=== PATIENT | male | born 2000 | race Caucasian/White ===

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

== ENCOUNTER 2024-11-12 19:39 | Emergency (ER) | payer MEDICAID, SELFPAY ==
[2024-11-12] VITALS (7 sets, daily range): BP systolic 111–153; BP diastolic 64–92; PULSE 63–88; RESP 18; TEMP 36.7; O2SAT 97–99
--- NOTE | 2024-11-12 19:45 | RT.EKG_ITS ---
APPROVED REPORT Exam: Resting ECG Reason for Exam: syncope Patient Location: E HR:80 bpm ECG Measurements Heart Rate 80 AXIS NV 137 P 65 QRSd 105 QRS 105 QT 354 T 40 QTc 409 Conclusion Sinus rhythm...normal P axis, V-rate 60- 99
--- NOTE | 2024-11-12 19:54 | ED.GENADUL_ITS ---
Discharge Plan Disposition Patient Disposition: Home Condition: Stable Discharge Details Chief Complaint: Abd Prob Clinical Impression: Syncope, Headache Primary Care Provider: None,None ED Provider: Asael Rush Home Meds and New Rx's Prescriptions: No Action No Known Home Meds Discharge Instructions Additional Instructions: You likely suffered for vasovagal syncope. Make sure you are staying hydrated and trying to get as much sleep as he can can help. Follow-up with your primary care provider especially if you have continued symptoms such as nausea or headac hes. If you feel more ill or have new symptoms such as severe abdominal pain or chest pain return to the emergency department for reevaluation HPI General Mode of arrival: ambulatory . Date/Time Provider Initiated Documentation: 11/12/24 19:40 . Limitations to Documentation: no limitations . Information obtained by: patient . History of Present Illness 23 year old M presents to the emergency department with the chief complaint of headache, syncope, described as moderate, Patient started experiencing this hour(s) (1) and it has been now resolved. No relieving factors improve symptom(s), No exacerbating factors reported . Patient notes denies chest pain and shortness of breath. Patient did receive the following treatments prior to arrival, none Related Data Home Medications ?Medication ?Instructions ?Recorded ?Confirmed Unknown [No Known Home Meds] 03/24/17 11/12/24 Allergies Allergy/AdvReac Type Severity Reaction Status Date / Time No Known Allergies Allergy Unverified 11/12/24 19:44 General Stated Complaint: Abd Prob LATONYA: 3 Review of Systems All systems reviewed & are unremarkable except as noted in HPI and below Constitutional Constitutional: Denies chills, Denies fever(s), Reports headache(s) and Denies weakness ENT Ears, Nose, Mouth, and Throat: Reports headache(s) Cardiovascular Cardiovascular: Denies chest pain and Denies dyspnea Respiratory Respiratory: Denies cough and Denies dyspnea Gastrointestinal Gastrointestinal: Denies abdominal pain, Denies nausea and Denies vomiting Neurologic Neurologic: Reports headache(s) and Denies weakness Exam Const General: no acute distress Orientation: alert HENMT Head: normal to inspection Ears: external ears normal General nose exam: external nose normal Mouth: moist mucous membranes Eyes General: appearance normal, both eyes and all related structures Neck Neck: normal visual inspection Resp Effort & Inspection: normal respiratory effort and able to speak in complete sentences Auscultation: clear to auscultation bilaterally Cardio Jugular venous pressure: no JVD Rate: regular rate Heart Sounds: no murmurs GI Palpation: soft and nontender Skin General skin exam: no rashes or lesions noted Neuro General: patient alert and patient oriented x3 Extrem General: normal to inspection Psych Mental Status: mental status grossly normal Course Vital Signs Vital signs: Vital Signs Temperature 36.7 C 11/12/24 19:41 Pulse 88 11/12/24 19:41 Respiratory Rate 18 11/12/24 19:41 Blood Pressure 153/92 H 11/12/24 19:41 Pulse Oximetry 98 11/12/24 19:41 Temperature 36.7 C 11/12/24 19:41 Temperature Source Oral 11/12/24 19:41 Pulse 88 11/12/24 19:41 Respiratory Rate 18 11/12/24 19:41 Blood Pressure 153/92 H 11/12/24 19:41 Blood Pressure Position Sitting 11/12/24 19:41 Pulse Oximetry 98 11/12/24 19:41 Oxygen Delivery Method Room Air 11/12/24 19:41 Oxygen Flow Rate 0 11/12/24 19:41 Medical Decision Making 23-year-old male who denies any chronic medical problems comes in after an episode of syncope. He says that he works night shifts and was up 2 hours earlier. He says that he took a big gulp of cold spray, he felt like it expanded in his abdomen and then he got tunnel vision and had a loss of consciousness for less than a minute. He apparently fell backwards in his head per bystander. He currently feels well other than having a mild frontal headache. He denies any fevers, chest pain, abdominal pain, vomiting. He has no focal neurological deficits and normal gait. He has a soft nontender abdomen. Clear lung sounds. I suspect this could be small syncope versus possible related to his lack of sleep, given the headache I will obtain a CT head and also check a CBC and CMP to evaluate for anemia and electrolyte abnormalities. He had no chest pain so I doubt ACS. No tachycardia or hypoxia to suggest PE. He has no tearing back pain so I doubt dissection. Given his lack of abdominal tenderness or pain I do not feel any imaging of his abdomen is indicated Labs show white count of 15 otherwise no significant findings. He continues to have no abdominal pain or tenderness on exam. He does note that he is intermittently feeling gassy . CT on my read without acute findings awaiting [facility] read. Will treat his gas symptoms with simethicone. CT head negative per [facility] read, patient is stable and still has no abdominal pain and headache is resolved. I suspect vasovagal syncope, he will follow-up with PCP of his lingering symptoms and return precautions given Differential Diagnosis Differential Diagnosis: Swallow syncope, anemia, electrolyte abnormality Lab Data Lab results reviewed: Yes I reviewed the patient's lab results. ECG Data Attestation: I personally reviewed and interpreted this ECG (s) as follows: Prior ECG tracings: not available for review Interpretation: sinus rate of 80 pr 137 no stemi Quality:SDOH Health Related Social Needs: No Data to Display PFSH All Active Problems (Updated 11/12/24 @ 21:12 by Asael Rush MD) Headache (Acute) Syncope (Chronic) Medical History (Updated 11/12/24 @ 21:12 by Asael Rush MD) Heart murmur Elbow fracture, left Femur fracture, right ADD (attention deficit disorder) Family History Mother Diabetes Gestational and now Type 2 History of hip replacement Hyperlipidemia Mental disorder Bi-polar Father Substance abuse DRUGS History of knee replacement Mental disorder Bi-Polar Other No problems noted. Grandparent Diabetes Social History Smoking/Tobacco Use Status: Current every day Tobacco Type: e-cigarettes and smokeless tobacco Smoking risk assessment performed?: Yes Alcohol Intake: never Drug use: Never Substance use type: does not use Do you feel safe at home: Yes Do you feel safe in your relationship?: Yes
[2024-11-12] MEDS: Acetaminophen 500 MG TAB 1000 MG PO (19:55)
[2024-11-12 20:00] LABS: Abs Immature Grans 0.06 10^3/uL (0.0-0.06); Absolute Basophil Count 0.08 10^3/uL (0.0-0.2); Absolute Eosinophil Count 0.11 10^3/uL (0.0-0.7); Absolute Lymphocyte Count 3.32 10^3/uL (1.2-3.4); Absolute Monocyte Count 0.71 10^3/uL (0.1-0.8); Absolute Neutrophil Count 11.39 10^3/uL (1.2-6.7); Basophils % 0.5 %; Eosinophils % 0.7 %; HCT 44.1 % (40.0-50.0); HGB 14.8 g/dL (13.5-17.5); Immature Grans % 0.4 %; Lymphocytes % 21.2 %; MCH 30.3 pg (27.0-33.0); MCHC 33.6 % (32.0-36.0); MCV 90 fL (80-95); MPV 9.9 fL (8.0-11.0); Monocytes % 4.5 %; Neutrophils % 72.7 %; Platelet Count 348 10^3/uL (130-400); RBC 4.89 10^6/uL (4.36-5.78); RDW 12.5 % (11.8-14.1); RDW-SD 41.3 fL; WBC 15.67 10^3/uL (4.4-10.8)
[2024-11-12 20:14] LABS: ALT 33 U/L (16-63); AST 27 U/L (15-37); Albumin 4.4 g/dL (3.4-5.0); Alkaline Phosphatase 108 U/L (46-116); Anion Gap 8.1 mmol/L (3-11); BUN 14 mg/dL (7-18); Bilirubin, Total 0.39 mg/dL (0.2-1.0); CO2 31.9 mmol/L (21.0-32.0); CREATININE 0.9 mg/dL (0.70-1.30); Calcium 9.8 mg/dL (8.5-10.1); Chloride 102 mmol/L (98-107); Estimated GFR 123.84 (mL/min/1.73m2); Glucose 118 mg/dL (74-106); Lipase 32 U/L (<78); Magnesium 2.1 mg/dL (1.8-2.4); Potassium 3.6 mmol/L (3.5-5.1); Sodium 142 mmol/L (136-145); Total Protein 8.3 g/dL (6.4-8.2)
--- NOTE | 2024-11-12 20:18 | DI.CT_ITS ---
Exam(s) CT HEAD WO EXAM: CT HEAD WO CLINICAL HISTORY: fall, head pain. TECHNIQUE: Imaging Protocol: Axial computed tomography images with coronal and sagittal reformatted images were created and reviewed COMPARISON: No exams were available for comparison FINDINGS: There are no skull fractures. There is no fluid in the visualized paranasal sinuses. There is a calcific density in the subcutaneous tissues in the posterior scalp over the left occipita l bone which measures 4 x 3 mm. No surrounding abscess. No soft tissue gas. There is no evidence of intracranial hemorrhage, mass effect, or shift of midline structures. There are no extra-axial fluid collections. The ventricles are not enlarged or shifted and there is no blo od within the ventricular system nor within the basal cisterns. IMPRESSION: No acute intracranial findings on this noninfused CT scan of the brain. RADIATION DOSE DELIVERED: 906.96mGy.cm Total DLP DATA REPOSITORY: All CT scans at this facility are submitted to the National Radiology Data Registry (NRDR) Dose Index Registry (DIR) with the [employer] (A[employer]). RADIATION OPTIMIZATION: All CT scans at this facility use at least one of these dose optimization te chniques: automated exposure control; mA and/or kV adjustment per patient size (includes targeted exa ms where dose is matched to clinical indication); or iterative reconstruction.
[2024-11-12] MEDS: Simethicone 80 MG CHEW 40 MG PO (20:43)
--- NOTE | 2024-11-12 21:03 | DI.VRAD_ITS ---
PROCEDURE INFORMATION: Exam: CT Head Without Contrast Exam date and time: 11/12/2024 8:13 PM Age: 23 years old Clinical indication: Other: Fall, head pain TECHNIQUE: Imaging protocol: Computed tomography of the head without contrast. COMPARISON: No relevant prior studies available. FINDINGS: Brain: Normal. No hemorrhage. Unremarkable white matter. No mass effect. Cerebral ventricles: No ventriculomegaly. Paranasal sinuses: Visualized sinuses are unremarkable. No fluid levels. Mastoid air cells: Visualized mastoid air cells are well aerated. Bones: Unremarkable. No acute fracture. Soft tissues: Unremarkable. IMPRESSION: No acute intracranial abnormality. Dictated and Authenticated by: Rey Ovalle MD. Orderin Adri Vyas MD
== END 2024-11-12 21:15 | disposition home or self-care (01) ==
PROVIDERS: Emergency Provider Emergency Medicine
DX: R10.9 Unspecified abdominal pain (principal); R55 Syncope and collapse; R51.9 Headache, unspecified; F17.290 Nicotine dependence, other tobacco product, uncomplicated
CPT/HCPCS: 36415; 80053; 82962; 83690; 93005; 99284; 70450; 83735; 85025; 93010